=== PATIENT | male | born 1945 | race Caucasian/White ===

== ENCOUNTER → 2016-09-10 | Outpatient (CLI) | payer MEDICARE, OTHER ==
[~2016-09-10] VITALS: Ht 177.8 cm; Wt 83.5 kg
[~2016-09-10] MED LIST: AMLO-512 PO; BENA20 PO; METH10TA2 PO; METH5TAB2 PO; MULT-1203 PO; NICO21T TD; OMEP20 PO; THIA100 PO
[2016-09-10 12:27] VITALS: BP 120/60
== END | disposition home or self-care (01) ==
LOC: SRCNTR 12:23
PROVIDERS: ATTEND Hospitalist
DX: I10 Essential (primary) hypertension (principal); B19.20 Unspecified viral hepatitis C without hepatic coma; G89.4 Chronic pain syndrome; C92.10 Chronic myeloid leukemia, BCR/ABL-positive, not having achieved remission; N17.9 Acute kidney failure, unspecified; F19.10 Other psychoactive substance abuse, uncomplicated; I25.10 Atherosclerotic heart disease of native coronary artery without angina pectoris; K21.9 Gastro-esophageal reflux disease without esophagitis; M19.90 Unspecified osteoarthritis, unspecified site; Z91.19 Patient's noncompliance with other medical treatment and regimen
CPT/HCPCS: G0463

== ENCOUNTER → 2017-01-11 | Outpatient (CLI) | payer MEDICARE, OTHER ==
[~2017-01-11] VITALS: Ht 177.8 cm; Wt 82.0 kg
[~2017-01-11] MED LIST changes: +NEOMYCIN/BACITRACIN/POLYMYXIN B OINTMENT PACKET TP ONE
[2017-01-11 10:24] VITALS: BP 142/81
== END | disposition home or self-care (01) ==
LOC: SRCNTR 10:22
PROVIDERS: ATTEND Hospitalist
DX: K21.9 Gastro-esophageal reflux disease without esophagitis (principal); I10 Essential (primary) hypertension; B19.20 Unspecified viral hepatitis C without hepatic coma; F17.200 Nicotine dependence, unspecified, uncomplicated; E78.5 Hyperlipidemia, unspecified; L02.31 Cutaneous abscess of buttock; C92.10 Chronic myeloid leukemia, BCR/ABL-positive, not having achieved remission
CPT/HCPCS: G0463

== ENCOUNTER 2018-02-19 05:52 | Emergency (ER) | payer MEDICARE, OTHER ==
[~2018-02-19] VITALS: Ht 177.8 cm; Wt 79.5 kg
[~2018-02-19 05:52] MED LIST changes: -NEOMYCIN/BACITRACIN/POLYMYXIN B OINTMENT PACKET TP ONE; -THIA100 PO; +THIA100T67 PO
[2018-02-19] MEDS ORDERED: IMAT100T PO (06:02)
[2018-02-19] MEDS ORDERED: BUPRENORPHINE HCL/NALOXONE HCL 2-0.5 MG SUBLINGUAL TABLET SL ONE ×2 (07:00)
[2018-02-19 07:38] LABS: AMPHET/METH SCREEN,URINE NEGATIVE (NEGATIVE); BARBITURATE SCREEN, URINE NEGATIVE (NEGATIVE); BENZODIAZEPINES SCREEN,URINE NEGATIVE (NEGATIVE); CANNABINOID SCREEN,URINE NEGATIVE (NEGATIVE); COCAINE SCREEN,URINE NEGATIVE (NEGATIVE); METHADONE SCREEN, URINE NEGATIVE (NEGATIVE); OPIATE SCREEN,URINE POSITIVE (NEGATIVE)
[2018-02-19 07:41] LABS: PHENCYCLIDINE SCREEN,URINE NEGATIVE (NEGATIVE)
[2018-02-19 07:54] VITALS: BP 141/82
== END 2018-02-19 08:01 | disposition home or self-care (01) ==
LOC: EMS 05:53
DX: F11.23 Opioid dependence with withdrawal (principal); I10 Essential (primary) hypertension; F17.210 Nicotine dependence, cigarettes, uncomplicated; Z79.899 Other long term (current) drug therapy
CPT/HCPCS: 36415; 80307; 99284; 99406; G0480; J0571

== ENCOUNTER 2018-05-20 12:36 | Emergency (ER) | payer MEDICARE, OTHER ==
[~2018-05-20] VITALS: Ht 177.8 cm; Wt 81.8 kg
[~2018-05-20 12:36] MED LIST changes: +IMAT100T PO
[2018-05-20 13:06] VITALS: BP 146/84
== END 2018-05-20 14:05 | disposition home or self-care (01) ==
LOC: EMS 12:39
DX: I10 Essential (primary) hypertension (principal); Z76.0 Encounter for issue of repeat prescription; L03.114 Cellulitis of left upper limb; L03.113 Cellulitis of right upper limb; F11.10 Opioid abuse, uncomplicated; F17.210 Nicotine dependence, cigarettes, uncomplicated; Z79.899 Other long term (current) drug therapy
CPT/HCPCS: 99406